=== PATIENT | female | born 1955 | race Caucasian/White ===

== ENCOUNTER 2016-12-08 11:02 | Emergency (ER) | payer OTHER ==
[~2016-12-08] VITALS: Ht 157.5 cm; Wt 84.0 kg
[~2016-12-08 11:02] MED LIST: ACET-2178; IBUP-1008
[2016-12-08 12:25] VITALS: BP 149/90
== END 2016-12-08 12:25 | disposition home or self-care (01) ==
LOC: ER 11:16
DX: M77.41 Metatarsalgia, right foot (principal)
CPT/HCPCS: 73630; 99284

== ENCOUNTER 2023-05-27 09:58 | Emergency (ER) | payer SELFPAY ==
[~2023-05-27] VITALS: Ht 167.6 cm; Wt 85.0 kg
[~2023-05-27 09:58] MED LIST changes: -ACET-2178; +TOPUD
[2023-05-27 10:12] VITALS: O2SAT 96
[2023-05-27] MEDS ORDERED: LIDO700A15 TP (10:42)
[2023-05-27] MEDS ORDERED: CYCL5TAB MT (10:42)
[2023-05-27] MEDS ORDERED: TOPUD MT (10:42)
[2023-05-27 12:29] VITALS: BP 160/87; PULSE 65; RESP 18; TEMP 98.2
== END 2023-05-27 12:38 | disposition home or self-care (01) ==
LOC: ER 09:58
DX: S46.811A Strain of other muscles, fascia and tendons at shoulder and upper arm level, right arm, initial encounter (principal); I10 Essential (primary) hypertension; X58.XXXA Exposure to other specified factors, initial encounter; Y93.89 Activity, other specified; Y92.89 Other specified places as the place of occurrence of the external cause; Y99.8 Other external cause status
CPT/HCPCS: 73030; 99283

== ENCOUNTER 2023-06-19 14:46 | Emergency (ER) | payer MEDICARE ==
[~2023-06-19] VITALS: Ht 165.1 cm; Wt 86.0 kg
[~2023-06-19 14:46] MED LIST changes: +CYCL5TAB MT; +LIDO700A15 TP; +TOPUD MT
[2023-06-19 14:50] VITALS: O2SAT 97
[2023-06-19] MEDS ORDERED: CYCL5TAB MT (17:39)
[2023-06-19 18:44] VITALS: BP 155/97; PULSE 90; RESP 20; TEMP 98.4
== END 2023-06-19 19:22 | disposition home or self-care (01) ==
LOC: ER 14:46
DX: M25.511 Pain in right shoulder (principal); M54.6 Pain in thoracic spine; I10 Essential (primary) hypertension; Z76.0 Encounter for issue of repeat prescription
CPT/HCPCS: 99283

== ENCOUNTER 2023-10-08 12:58 | Emergency (ER) | payer MEDICARE ==
[~2023-10-08] VITALS: Ht 157.5 cm; Wt 69.0 kg
[2023-10-08 13:09] VITALS: O2SAT 98
[2023-10-08] MEDS ORDERED: MED4 MT (14:34)
[2023-10-08] MEDS ORDERED: CYCL5TAB MT (14:34)
[2023-10-08 15:03] VITALS: BP 144/94; PULSE 90; RESP 19; TEMP 98
[2023-10-08 15:03] LABS: CLARITY URINE TURBID (CLEAR); COLOR URINE YELLOW (YELLOW); GLUCOSE URINE 2+ (NEGATIVE); KETONES URINE TRACE (NEGATIVE); LEUKOCYTE ESTERASE URINE 3+ (NEGATIVE); NITRITE URINE NEGATIVE (NEGATIVE); OCCULT BLOOD URINE TRACE (NEGATIVE); PH URINE 7.5 (4.5-8.0); PROTEIN URINE TRACE (NEGATIVE); SPECIFIC GRAVITY URINE 1.012 (1.005-1.030); UROBILINOGEN URINE 0.2 E.U./dL (0.2-1.0)
[2023-10-08 15:23] LABS: SQUAMOUS EPITHELIAL CELL URINE FEW /lpf (RARE/1+)
[2023-10-08 15:24] LABS: WBC URINE 50-100 /hpf (0-2)
[2023-10-08 15:25] LABS: BACTERIA URINE 1+; RBC URINE 0-2 /hpf (0-2); YEAST URINE 4+
[2023-10-08] MEDS ORDERED: FLUC200T51 MT (16:30)
[2023-10-08] MEDS ORDERED: CEPH500C2 MT (16:30)
== END 2023-10-08 15:04 | disposition home or self-care (01) ==
LOC: ER 12:58
DX: M54.9 Dorsalgia, unspecified (principal); B37.31 Acute candidiasis of vulva and vagina; N39.0 Urinary tract infection, site not specified; E11.9 Type 2 diabetes mellitus without complications; I10 Essential (primary) hypertension
CPT/HCPCS: 81003; 87106; 99283

== ENCOUNTER 2024-03-23 14:48 | Emergency (ER) | payer MEDICARE ==
[~2024-03-23] VITALS: Ht 165.1 cm; Wt 85.0 kg
[~2024-03-23 14:48] MED LIST changes: +AMLO10TA80 PO; -CYCL5TAB MT; -IBUP-1008; -LIDO700A15 TP; +METF-414 PO; -TOPUD; -TOPUD MT
[2024-03-23 14:50] VITALS: BP 0/0; TEMP 98.8; O2SAT 84
[2024-03-23] MEDS ORDERED: NOREPINEPHRINE 8 MG in DEXT 5% WATER 242 ML IV STA (15:17)
[2024-03-23 15:50] VITALS: PULSE 92; RESP 22; O2SAT 96
== END 2024-03-23 15:39 ==
LOC: ER 14:55
DX: I49.1 Atrial premature depolarization (principal); E11.9 Type 2 diabetes mellitus without complications; I10 Essential (primary) hypertension; Z86.718 Personal history of other venous thrombosis and embolism
CPT/HCPCS: 92950; 31500; 93005; 99291; J3490; J7060; 94002